=== PATIENT | male | born 1965 | race African-American/Black ===

== ENCOUNTER 2022-02-10 07:25 | Day surgery (SDC) | payer OTHER ==
[2022-02-08 12:35] VITALS: BMI 24.3
[~2022-02-10 07:25] MED LIST: LACTATED RINGERS 1,000 ML IV SCH
[2022-02-10 07:47] LABS: Glucose,Whole Blood 80 mg/dL (75-99)
[2022-02-10 07:48] VITALS: RESP 16; TEMP 98
[2022-02-10] MEDS ORDERED: MIDAZOLAM 2 MG/2 ML VIAL ONE (08:06)
[2022-02-10] MEDS ORDERED: PROPOFOL 10 MG/ML 20 ML VIAL IV ONE (08:06)
[2022-02-10] MEDS ORDERED: LIDOCAINE 1% INJ 10MG/ML (20 ML MDV) ONE (08:06)
[2022-02-10] MEDS ORDERED: fentaNYL (PF) 50 MCG/ML 2 ML AMP ONE (08:06)
--- NOTE | 2022-02-10 08:11 | P.GSHP ---
History of Present Illness H&P Date: 02/10/22 Chief Complaint: History of peptic ulcer disease, screening colonoscopy Is a 56-year-old male presents today for EGD and screening colonoscopy. Patient denies a significant GI complaints. He has had previous history of peptic ulcer disease. Past Medical History Past Medical History: Diabetes Mellitus History of Any Multi-Drug Resistant Organisms: None Reported Past Surgical History: No Surgical Hx Reported Past Anesthesia/Blood Transfusion Reactions: No Reported Reaction Additional Past Anesthesia/Blood Transfusion Reaction / Comment(s): Has never had anesthesia. Past Psychological History: No Psychological Hx Reported Smoking Status: Never smoker Past Alcohol Use History: Occasional Past Drug Use History: None Reported - Past Family History Mother Family Medical History: No Reported History Medications and Allergies Home Medications Medication Instructions Recorded Confirmed Type Insulin Regular [humuLIN R] 0 units SQ DIRECTED PRN 02/08/22 02/10/22 History Allergies Allergy/AdvReac Type Severity Reaction Status Date / Time No Known Allergies Allergy Verified 02/10/22 07:38 Surgical - Exam Vital Signs Temp Pulse Resp BP Pulse Ox 98.0 F 72 16 133/79 98 02/10/22 07:40 02/10/22 07:40 02/10/22 07:40 02/10/22 07:40 02/10/22 07:40 - General well developed, well nourished, no distress - Eyes PERRL - ENT normal pinna - Neck no masses - Respiratory normal expansion - Cardiovascular Rhythm: regular - Abdomen Abdomen: soft, non tender Assessment and Plan Assessment: History of peptic ulcers. We'll perform EGD and screening colonoscopy.
--- NOTE | 2022-02-10 08:26 | P.OP ---
Date of Procedure: 02/10/22 Preoperative Diagnosis: History of peptic ulcer disease Screening colonoscopy Postoperative Diagnosis: Antral gastritis Procedure(s) Performed: EGD Colonoscopy Anesthesia: MAC Surgeon: Ancelmo Boucher Pathology: other (Antrum) Condition: stable Disposition: PACU Description of Procedure: The patient's placed on the endoscopy table in the lateral position. He received IV sedation. The gastro-/oropharynx passed in the esophagus and stomach. Scope was placed through the pylorus. The first and second portion of the duodenum appeared normal. Scope summer back the antrum there is mild inflammation. A biopsies performed. Scope was unretroflexed and remainder of the stomach appeared normal. The GE junction was at 40 cm the distal esophagus appeared normal. The proximal esophagus. Normal. Scope withdrawn for patient. Next digital rectal exam was performed. This revealed no abnormalities. Flexible colonoscope was then placed patient anus and passed throughout the entire colon. The ileocecal valve was visualized. The cecum, ascending and transverse colon appeared normal. The descending and sigmoid colon appeared normal. Scope was brought back back the rectum and this appeared normal scope withdrawn for patient.
[2022-02-10 08:41] VITALS: BP 109/68; PULSE 79
[2022-02-10 08:52] LABS: Glucose,Whole Blood 86 mg/dL (75-99)
== END 2022-02-10 09:07 | disposition home or self-care (01) ==
LOC: ORWHC2ENDO 07:25
PROVIDERS: ATTEND Surgery
DX: Z12.11 Encounter for screening for malignant neoplasm of colon (principal); K29.50 Unspecified chronic gastritis without bleeding; E11.9 Type 2 diabetes mellitus without complications; Z87.11 Personal history of peptic ulcer disease
CPT/HCPCS: 88305; 88342; 43239; J2250; J2001; J3010; J2704; G0121; 45378

== ENCOUNTER 2022-03-24 07:23 | Day surgery (SDC) | payer OTHER ==
[2022-03-23 11:09] VITALS: BMI 24.3
[2022-03-24 07:43] VITALS: TEMP 97.4
[2022-03-24] MEDS ORDERED: PROPOFOL 10 MG/ML 20 ML VIAL IV ONE (08:21)
--- NOTE | 2022-03-24 08:23 | P.GSHP ---
History of Present Illness H&P Date: 03/24/22 Chief Complaint: History of gastritis This is a 56-year-old male presents today for a EGD. He has a history of gastritis. Past Medical History Past Medical History: Diabetes Mellitus Additional Past Medical History / Comment(s): H=PYLORI History of Any Multi-Drug Resistant Organisms: None Reported Past Surgical History: No Surgical Hx Reported Additional Past Surgical History / Comment(s): EGD/COLONOSCOPY Past Anesthesia/Blood Transfusion Reactions: No Reported Reaction Additional Past Anesthesia/Blood Transfusion Reaction / Comment(s): Has never had anesthesia. Smoking Status: Never smoker - Past Family History Mother Family Medical History: No Reported History Medications and Allergies Home Medications Medication Instructions Recorded Confirmed Type INSULIN LISPRO (humaLOG) [humaLOG] 2 - 4 units SQ TID-W/MEALS 03/23/22 03/24/22 History Insulin Detemir [Levemir Flextouch 4 units SQ BID 03/23/22 03/24/22 History Pen] Allergies Allergy/AdvReac Type Severity Reaction Status Date / Time No Known Allergies Allergy Verified 03/24/22 07:31 Surgical - Exam Vital Signs Temp Pulse Resp BP Pulse Ox 97.4 F L 74 18 136/75 100 03/24/22 07:40 03/24/22 07:40 03/24/22 07:40 03/24/22 07:40 03/24/22 07:40 - General well developed, well nourished, no distress - Eyes PERRL - ENT normal pinna - Neck no masses - Respiratory normal expansion - Cardiovascular Rhythm: regular - Abdomen Abdomen: soft, non tender Assessment and Plan Assessment: Gastritis. We'll perform EGD.
[2022-03-24 08:25] LABS: Glucose,Whole Blood 86 mg/dL (75-99)
--- NOTE | 2022-03-24 08:30 | P.OP ---
Date of Procedure: 03/24/22 Preoperative Diagnosis: Gastritis Postoperative Diagnosis: Mild antral gastritis Procedure(s) Performed: EGD Anesthesia: MAC Surgeon: Ancelmo Boucher Pathology: other (Antrum) Condition: stable Disposition: PACU Description of Procedure: The patient's placed on the endoscopy table lateral position. He received IV sedation. The gastroscope placed oropharynx passed in the esophagus and stomach. Scope was then placed through the pylorus. The first and second portion of the duodenum appeared normal. Scope was then brought back into the antrum. This is minimally inflamed. A biopsies performed. Scope was then retroflexed and the remainder of the stomach appeared normal. The GE junction was at 40 cm. The distal esophagus appeared normal. The proximal esophagus appeared normal. Scope was withdrawn for patient.
[2022-03-24 08:39] VITALS: RESP 16
[2022-03-24 08:39] LABS: Glucose,Whole Blood 93 mg/dL (75-99)
[2022-03-24 08:52] VITALS: PULSE 73
[2022-03-24 08:58] VITALS: BP 112/57
== END 2022-03-24 09:13 | disposition home or self-care (01) ==
LOC: ORWHC2ENDO 07:23
PROVIDERS: ATTEND Surgery
DX: K29.50 Unspecified chronic gastritis without bleeding (principal); E11.9 Type 2 diabetes mellitus without complications; K29.70 Gastritis, unspecified, without bleeding; Z79.4 Long term (current) use of insulin; Z87.19 Personal history of other diseases of the digestive system
CPT/HCPCS: 43239; 88305; J2704